=== PATIENT | male | born 1955 | race Hispanic/Latino ===

== ENCOUNTER 2019-02-13 06:23 | Day surgery (SDC) | payer MEDICAID ==
[2019-02-13 06:54] VITALS: BMI 17.9
[2019-02-13 07:01] VITALS: PULSE 53; RESP 19; TEMP 97.5; O2SAT 100
[2019-02-13] MEDS ORDERED: Lactated Ringer's 500 ML IV SCH (07:15)
[2019-02-13] MEDS ORDERED: Propofol 10 mg/ml Inj (20 ML) ONE (07:28)
[2019-02-13] MEDS ORDERED: Lidocaine Hydrochloride 5 ML INJ ONE (07:29)
[2019-02-13 11:17] VITALS: BP 123/69
--- NOTE | 2019-02-14 14:21 | CARD ---
APPROVED REPORT Date of service: 02/13/2019 EKG Measurement Heart [id number] [place] P77 [id number] <Conclusion> Sinus rhythm frequent interpolated PVC's Prolonged QT Abnormal ECG
== END 2019-02-13 11:26 | disposition home or self-care (01) ==
LOC: C.ENDO 06:23
PROVIDERS: ATTEND Internal Medicine Gastroenterology
DX: K59.01 Slow transit constipation (principal); K59.2 Neurogenic bowel, not elsewhere classified; K64.0 First degree hemorrhoids; I49.3 Ventricular premature depolarization
CPT/HCPCS: 45378; 93005; J2704; J7120

== ENCOUNTER 2019-03-27 06:49 | Day surgery (SDC) | payer MEDICAID ==
[2019-03-27] MEDS ORDERED: Propofol 10 mg/ml Inj (20 ML) ONE (08:59)
[2019-03-27] MEDS ORDERED: Lactated Ringer's 1,000 ML IV ONE (09:05)
[2019-03-27 09:33] VITALS: TEMP 98.6; O2SAT 100
[2019-03-27 10:11] VITALS: RESP 12
[2019-03-27 10:52] VITALS: BP 133/97; PULSE 62
== END 2019-03-27 10:50 | disposition home or self-care (01) ==
LOC: C.ENDO 06:49
PROVIDERS: ATTEND Internal Medicine Gastroenterology
DX: K21.9 Gastro-esophageal reflux disease without esophagitis (principal); R13.10 Dysphagia, unspecified
CPT/HCPCS: 43239; 88305; 88312; J2001; J2704; J7120

== ENCOUNTER 2019-04-11 13:07 | Outpatient (CLI) | payer MEDICAID | END 2019-04-16 10:44 | disposition home or self-care (01) | LOC: C.RADH 13:07 | DX: R13.10 Dysphagia, unspecified (principal) ==